=== PATIENT | male | born 1970 | race Caucasian/White ===

== ENCOUNTER 2022-02-10 16:29 | Inpatient (IN) | payer MEDICAID, SELFPAY ==
[2022-02-10] VITALS (21 sets, daily range): BP systolic 129–205; BP diastolic 72–146; PULSE 53–97; RESP 15–27; TEMP 36.6–37.1; O2SAT 94–99; BMI 21.5
--- NOTE | 2022-02-10 | CTR_ITS ---
PROCEDURE INFORMATION: Exam: CT Head Without Contrast Exam date and time: 02/10/2022 5:16 PM Age: 51 years old Clinical indication: Stroke-like symptoms; Altered mental status/memory loss and speech disturbance; Additional info: Stroke like symptoms TECHNIQUE: Imaging protocol: Computed tomography of the head without contrast. Radiation optimization: All CT scans at this facility use at least one of these dose optimization techniques: automated exposure control; mA and/or kV adjustment per patient size (includes targeted exams where dose is matched to clinical indication); or iterative reconstruction. Other technique: STROKE PROTOCOL was implemented. COMPARISON: No relevant prior studies available. RADIATION DOSE METRICS: Total DLP (mGy-cm): 1764.38 FINDINGS: Brain: Mild diffuse white matter disease likely reflecting chronic microvascular ischemic changes. Cerebral ventricles: No ventriculomegaly. Paranasal sinuses: Paranasal sinus opacifications. Mastoid air cells: Visualized mastoid air cells are well aerated. Bones/joints: Unremarkable. No acute fracture. Soft tissues: Unremarkable. CT/CT head wo con* [id number] IMPRESSION: Negative for intracranial hemorrhage or mass effect. ASSESSMENT: ASPECTS ([place] Stroke [facility] Early CT Score) is 10.
--- NOTE | 2022-02-10 16:35 | ED_ITS ---
HPI - Altered Mental Status General: Chief Complaint: Altered Mental Status Stated Complaint: AFFECTIVE DYSPHASIA; AMS Time Seen by Provider: 02/10/22 16:34 Limitations: altered mental status History of Present Illness: Mr. Elias is a 51-year-old gentleman with history of hypertension presenting to the emergency department due to altered mental status. Initially family reported last known well of 11 however upon clarification with additional family last known well was 1500. Patient had sudden onset of word salad and acting confused. No history of similar. No reported recent changes in health otherwise. History otherwise limited by patient's current medical state. Time: 15:00 Timing confirmed by: family member Severity: severe Consistency of symptoms: Constant Review of Systems General: Reports: ROS unobtainable due to mental status PFSH ED PFSH: Medical History HTN (hypertension) Surgical History No pertinent past surgical history Family History Denies family history of Stroke Social History Smoking and tobacco status: current every day smoker Alcohol intake: current Household members: family Physical Exam Const: COMMON NORMALS: alert GENERAL APPEARANCE: well developed HENMT: COMMON NORMALS: normocephalic and atraumatic HEAD & SCALP: normocephalic and atraumatic Eye: COMMON NORMALS: conjunctivae normal CONJUNCTIVA: Yes conjunctivae normal SCLERA: sclerae normal Neck/C-Spine: COMMON NORMALS: supple GENERAL: Yes trachea midline Resp: COMMON NORMALS: clear to auscultation bilaterally EFFORT & INSPECTION: Yes able to speak in complete sentences AUSCULTATION: clear to auscultation bilaterally Cardio: COMMON NORMALS: regular rate and regular rhythm RATE: regular rate RHYTHM: regular rhythm GI: COMMON NORMALS: Soft to palpation PALPATION: Yes Soft to palpation and No Tenderness to palpation present (GI) Extremity: GENERAL: Yes normal exam except as noted and No edema Neuro: COMMON NORMALS: moves all extremities SENSORIUM/ORIENTATION: Yes alert and Yes Orientation impaired OTHER: Initial NIHSS is at least 6 though exam is severely limited by patient's understanding and lack of ability to follow/understand commands. Psych: ATTENTION/CONCENTRATION: Yes attention grossly impaired and Yes concentration grossly impaired Course Vital Signs: Vital signs: Vital Signs Temperature 98.3 F 02/12/22 10:00 Pulse Rate 82 02/12/22 12:36 Respiratory Rate 16 02/12/22 12:36 Blood Pressure 179/113 02/12/22 06:00 Pulse Oximetry 93 02/12/22 12:36 Oxygen Delivery Me thod 02/12/22 11:03 MDM - Altered Mental Status Medical Decision Making 51-year-old gentleman presenting with acute altered mental status. Exam as above. NIHSS at least 6 though probably greater as the patient does not understand enough to follow commands. Glucose normal. The patient was unable to stay still and not redirectable with commands and therefore required medication for anxiolysis for the purpose of obtaining accurate imaging to evaluate for high morbidity/mortality condition. CT head negative for acute intracranial hemorrhage or mass. Upon clarification and more recent time of definitive onset of symptoms patient is a reasonable tPA candidate and after discussion of risks and benefits of tPA administered. Labs notable for leukocytosis which may be reactive, normal hemoglobin. Metabolic panel without acute derangement to explain symptoms. No evidence of urinary tract infection. Toxic ingestions urine drug screen is negative. CTA negative for large vessel occlusion amenable to endovascular retrieval. Upon serial reassessment patient is perhaps minimally improved. During ED care patient additionally received labetalol for blood pressure control. Most likely etiology of patient's symptoms is stroke. The results of ED evaluation were discussed with the patient and family including plan for admission due to requirement for level of care not available if discharged to prevent significant worsening/deterioration. Patient and family agreeable with plan. Discussed with hospitalist service who was agreeable to admit patient. Medical Records I reviewed the patient's medical records. Lab Data I reviewed the patient's lab results. 02/10/22 16:25 02/10/22 16:25 Radiology Impressions Head/Neck CTA 02/10/22 16:49 IMPRESSION: 1. No arterial stenosis, occlusion or aneurysm. 2. Possible acute left maxillary sinusitis. IMPRESSION: 1. No arterial occlusion or dissection. 2. Less than 50% stenosis of the right vertebral artery and bilateral internal carotid artery origins. REFERENCES: NASCET CRITERIA. The degree of stenosis in the cervical segment of the internal carotid artery is based on NASCET criteria. Normal is no stenosis. Mild is less than 50% stenosis. Moderate is 50-69% stenosis. Severe is 70% to 99% stenosis. Total occlusion is no detectable patent lumen. ADDENDUM: 02/10/221930 THIS REPORT CONTAINS FINDINGS THAT MAY BE CRITICAL TO PATIENT CARE. The findings were communicated via written report. Receipt and understanding of the findings was acknowledged by Matthew Hernández at 7:29 PM GUIDE EXCURSION on 02/10/2022. Head CT 02/11/22 18:00 IMPRESSION: 1. No acute intracranial abnormality. 2. Fluid in the left maxillary sinus. Possible acute sinusitis. Laboratory Results WBC 14.8 10^3/uL (4.0-10.0) H 02/10/22 16:25 RBC 4.30 10^6/uL (4.1-5.3) 02/10/22 16:25 Hgb 13.7 g/dL (11.7-16.6) 02/10/22 16:25 Hct 39.3 % (42.0-52.0) L 02/10/22 16:25 MCV 91.4 fl (80-94) 02/10/22 16:25 MCH 31.9 pg (28.0-34.0) 02/10/22 16:25 MCHC 34.9 g/dL (30.0-36.0) 02/10/22 16:25 RDW 13.2 % (12.1-15.1) 02/10/22 16:25 Plt Count 323 10^3/cmm (130-400) 02/10/22 16:25 MPV 9.8 fL (7.4-10.4) 02/10/22 16:25 Neut % (Auto) 74.0 % 02/10/22 16:25 Lymph % (Auto) 15.7 % 02/10/22 16:25 [place] % (Auto) 8.1 % 02/10/22 16:25 Eos % (Auto) 1.0 % 02/10/22 16:25 Baso % (Auto) 0.7 % 02/10/22 16:25 Neut # (Auto) 10.93 10^3/uL (1.8-7.7) H 02/10/22 16:25 Lymph # (Auto) 2.3 10^3/uL (0.8-4.8) 02/10/22 16:25 [place] # (Auto) 1.2 10^3/uL (0.2-0.9) H 02/10/22 16:25 Eos # (Auto) 0.2 10^3/uL (0.0-0.8) 02/10/22 16:25 Baso # (Auto) 0.1 10^3/uL (0.0-0.1) 02/10/22 16:25 Nucleated RBC % (auto) 0 % 02/10/22 16:25 Nucleated RBCs # 0.0 /100WBC 02/10/22 16:25 D-Dimer 0.56 ug/mIFEU (0-0.59) 02/10/22 16:55 Sodium 136 mmol/L (136-145) 02/10/22 16:25 Potassium 3.6 mmol/L (3.5-5.1) 02/10/22 16:25 Chloride 99 mmol/L (98-107) 02/10/22 16:25 Carbon Dioxide 24 mmol/L (22-29) 02/10/22 16:25 Anion Gap 16.6 (5-19) 02/10/22 16:25 BUN 25 mg/dL (6-20) H 02/10/22 16:25 Creatinine 1.2 mg/dL (0.7-1.2) 02/10/22 16:25 GFR Calculation 63.6 mL/min (90-130) L 02/10/22 16:25 Glucose 121 mg/dL (65-115) H 02/10/22 16:25 POC Glucose 158 mg/dL (70-110) H 02/10/22 17:04 Calculated Osmolality 288 mOsm/kg (285-295) 02/10/22 16:25 Calcium 9.6 mg/dL (8.5-10.5) 02/10/22 16:25 Total Bilirubin 0.3 mg/dL (0.15-1.2) 02/10/22 16:25 AST 16 U/L (0-40) 02/10/22 16:25 ALT 13 U/L (0-41) 02/10/22 16:25 Alkaline Phosphatase 76 U/L (40-130) 02/10/22 16:25 Total Protein 7.3 g/dL (6.6-8.7) 02/10/22 16:25 Albumin 4.2 g/dL (3.5-5.2) 02/10/22 16:25 Globulin 3.1 g/dL (1.3-4.6) 02/10/22 16:25 Triglycerides 141 mg/dL (0-150) 02/10/22 16:25 Cholesterol 291 mg/dL (0-200) H 02/10/22 16:25 LDL Cholesterol, Calc 216 mg/dL (50-129) H 02/10/22 16:25 HDL Cholesterol 47 mg/dL (60-100) L 02/10/22 16:25 LDL/HDL Ratio 4.60 RATIO (0.00-3.22) H 02/10/22 16:25 Cholesterol/HDL Ratio 6.19 mg/dL (1.0-5.00) H 02/10/22 16:25 TSH 1.59 uIU/mL (0.27-4.20) 02/10/22 16:25 Urine Color Straw (Yellow) 02/10/22 17:44 Urine Appearance Clear (CLEAR) 02/10/22 17:44 Urine pH 8 (5-7) H 02/10/22 17:44 Ur Specific [place] 1.010 (1.005-1.030) 02/10/22 17:44 Urine Protein Neg (Negative) 02/10/22 17:44 Urine Glucose (UA) Norm (Normal) 02/10/22 17:44 Urine Ketones 1+ (Negative) H 02/10/22 17:44 Urine Blood Neg (Negative) 02/10/22 17:44 Urine Nitrate Negative (Negative) 02/10/22 17:44 Urine Bilirubin Neg (Negative) 02/10/22 17:44 Prot Sulfosalicylic Acd Negative (Negative) 02/10/22 17:44 Urine Urobilinogen Norm mg/dL (Negative) 02/10/22 17:44 Ur Leukocyte Esterase Negative (Negative) 02/10/22 17:44 Salicylates < 0.3 mg/dL (3-10) L 02/10/22 16:25 Urine Opiates Screen Negative ng/mL (Negative) 02/10/22 17:44 Acetaminophen < 5.0 ug/mL (10-30) L 02/10/22 16:25 Ur Barbiturates Screen Negative ng/mL (Negative) 02/10/22 17:44 Ur Phencyclidine Scrn Negative ng/mL (Negative) 02/10/22 17:44 Ur Amphetamines Screen Negative ng/mL (Negative) 02/10/22 17:44 U Benzodiazepines Scrn Negative ng/mL (Negative) 02/10/22 17:44 Urine Cocaine Screen Negative ng/mL (Negative) 02/10/22 17:44 U Marijuana (THC) Screen Negative ng/mL (Negative) 02/10/22 17:44 Ethyl Alcohol < 10 mg/dL (0-10) 02/10/22 16:25 Critical Care Time Critical Care Time: Critical Care Time: Yes Total Critical Care Time: 40 Attestation: Due to a high probability of clinically significant, possibly life threatening deterioration, the patient required my highest level of attention and preparedness to intervene emergently and I personally spent this critical care time directly and personally managing the patient. This critical care time included obtaining a history; examining the patient; pulse oximetry; ordering and review of laboratory and imaging studies; arranging urgent treatment with development of a management plan; evaluation of patient's response to treatment; frequent reassessment; and, discussions with other providers as applicable. It was exclusive of separately billable procedures. Primary system involved is cerebrovascular Discharge Plan Discharge Patient Disposition: Admitted As Inpatient Admit Provider: Migdalia Wilks Clinical Impression: Stroke, Acute alteration in mental status, Received intravenous tissue plasminogen activator (tPA) in emergency department Condition: Stable Discharge Diet: Cardiac Discharge Activity: Increase activity as tolerated and As per PT/OT instructions Coding Level of Care Code ED Corporate Associate Attorney for [employer] Exam Comprehensive NIH stroke score NIHSS Level Of Consciousness - 1a: 0 Level Of Consciousness Questions - 1b: Neither Correct Level Of Consciousness Commands - 1c: Neither Correct Best Gaze - 2: Normal Visual Tyson - 3: No Visual Loss Facial Palsy - 4: Normal Motor Arm Right - 5: No Drift Motor Arm Left - 5: No Drift Motor Leg Right - 6: No Drift Motor Leg Left - 6: No Drift Limb Ataxia - 7: Absent Sensory - 8: Normal Best Language - 9: Severe Aphasia Dysarthia - 10: Normal Extinction And Inattention - 11: 0 Score Total Score: 6
--- NOTE | 2022-02-10 16:49 | CTR_ITS ---
PROCEDURE INFORMATION: Exam: CTA Head With Contrast, Arteriography Exam date and time: 02/10/2022 6:38 PM Age: 51 years old Clinical indication: Cognitive deficit; Altered mental status; Additional info: Stroke like symptoms TECHNIQUE: Imaging protocol: Computed tomographic angiography of the head with contrast. Exam focused on the arteries. 3D rendering (Not supervised by radiologist): MIP and/or 3D reconstructed images were created by the technologist. Radiation optimization: All CT scans at this facility use at least one of these dose optimization techniques: automated exposure control; mA and/or kV adjustment per patient size (includes targeted exams where dose is matched to clinical indication); or iterative reconstruction. Contrast material: OMNIPAQUE 350; Contrast volume: 100 ml; Contrast route: INTRAVENOUS (IV); COMPARISON: CT head wo con* [id number] 02/10/2022 5:16 PM RADIATION DOSE METRICS: Total DLP (mGy-cm): 455.73 FINDINGS: ANTERIOR CIRCULATION: Right internal carotid artery: There is mild atherosclerotic disease in the cavernous portion of the right internal carotid artery without significant stenosis. Right middle cerebral artery: No occlusion or significant stenosis. No aneurysm. Right anterior cerebral artery: No occlusion or significant stenosis. No aneurysm. Left internal carotid artery: There is mild atherosclerotic disease in the cavernous portion of the left internal carotid artery without significant stenosis. Left middle cerebral artery: No occlusion or significant stenosis. No aneurysm. Left anterior cerebral artery: No occlusion or significant stenosis. No aneurysm. POSTERIOR CIRCULATION: Right vertebral artery: No occlusion or significant stenosis. No aneurysm. Left vertebral artery: The left vertebral artery is hypoplastic and does not contribute to the basilar artery but terminates in the posteroinferior cerebellar artery. Basilar artery: No occlusion or significant stenosis. No aneurysm. Right posterior cerebral artery: origin of the right posterior cerebral artery. No occlusion or aneurysm. Left posterior cerebral artery: No occlusion or significant stenosis. No aneurysm. Brain: No definite mass, mass effect, or midline shift. Cerebral ventricles: No ventriculomegaly. Paranasal sinuses: Air-fluid level in the left maxillary sinus. Bones/joints: Unremarkable. No acute fracture. Soft tissues: Unremarkable. PROCEDURE INFORMATION: Exam: CTA Neck With Contrast Exam date and time: 02/10/2022 6:38 PM Age: 51 years old Clinical indication: Cognitive deficit; Altered mental status; Additional info: Stroke like symptoms TECHNIQUE: Imaging protocol: Computed tomographic angiography of the neck with contrast. 3D rendering (Not supervised by radiologist): MIP and/or 3D reconstructed images were created by the technologist. Radiation optimization: All CT scans at this facility use at least one of these dose optimization techniques: automated exposure control; mA and/or kV adjustment per patient size (includes targeted exams where dose is matched to clinical indication); or iterative reconstruction. Contrast material: OMNIPAQUE 350; Contrast volume: 100 ml; Contrast route: INTRAVENOUS (IV); COMPARISON: CT head wo [facility]* [id number] 02/10/2022 5:16 PM RADIATION DOSE METRICS: Total DLP (mGy-cm): 455.73 FINDINGS: Right common carotid artery: No stenosis. No dissection or occlusion. Right internal carotid artery: There is mild atherosclerotic disease at the origin of the right internal carotid artery with less than 50% stenosis. Right external carotid artery: No occlusion or stenosis of the origin. Left common carotid artery: No stenosis. No dissection or occlusion. Left internal carotid artery: There is mild atherosclerotic disease at the origin of the left internal carotid artery with less than 50% stenosis. Left external carotid artery: No occlusion or stenosis of the origin. Right vertebral artery: Mild calcific plaque in the right vertebral artery with less than 50% stenosis. Left vertebral artery: Patent but mildly hypoplastic left vertebral artery. Soft tissues: Soft tissues in the neck and thoracic inlet are unremarkable. Bones/joints: There is mild degenerative disc disease in the cervical spine. Lungs: Lung apices are clear. CT/CT angio headneck* [id number] IMPRESSION: 1. No arterial stenosis, occlusion or aneurysm. 2. Possible acute left maxillary sinusitis. IMPRESSION: 1. No arterial occlusion or dissection. 2. Less than 50% stenosis of the right vertebral artery and bilateral internal carotid artery origins. REFERENCES: NASCET CRITERIA. The degree of stenosis in the cervical segment of the internal carotid artery is based on NASCET criteria. Normal is no stenosis. Mild is less than 50% stenosis. Moderate is 50-69% stenosis. Severe is 70% to 99% stenosis. Total occlusion is no detectable patent lumen.
[2022-02-10 17:02] LABS: Basophils # 0.1 10^3/uL (0.0-0.1); Basophils % 0.7 %; Eosinophils # 0.2 10^3/uL (0.0-0.8); Hematocrit 39.3 % (42.0-52.0); Hemoglobin 13.7 g/dL (11.7-16.6); Lymphocytes # 2.3 10^3/uL (0.8-4.8); Lymphocytes % 15.7 %; Mean Corpuscular HGB Conc 34.9 g/dL (30.0-36.0); Mean Corpuscular Hemoglobin 31.9 pg (28.0-34.0); Mean Corpuscular Volume 91.4 fl (80-94); Mean Platelet Volume 9.8 fL (7.4-10.4); Monocytes # 1.2 10^3/uL (0.2-0.9); Monocytes % 8.1 %; Neutrophils # 10.93 10^3/uL (1.8-7.7); Nucleated Red Blood Cells % 0 %; Platelet Count 323 10^3/cmm (130-400); Red Cell Distribution Width 13.2 % (12.1-15.1); White Blood Count 14.8 10^3/uL (4.0-10.0)
[2022-02-10] MEDS: haloperidol inj 5 mg/mL INJ 1 mL 2 MG IVP ×2 (17:03→18:01)
[2022-02-10] MEDS: midazolam 1 mg/mL INJ 2 mL 2 MG IVP ×2 (17:03→18:01)
--- NOTE | 2022-02-10 17:06 | PC.NURSE ---
pt sister states that pt was sitting in front of her around 1500 when he went from normal to unable to make words, states everything was garbled, was hardly able to stand and didnt know who she was.
[2022-02-10 17:08] LABS: Glucose Point of Care 158 mg/dL (70-110)
[2022-02-10] MEDS: midazolam 1 mg/mL INJ 2 mL 4 MG IVP (17:17)
[2022-02-10 17:28] LABS: Alanine Aminotransferase 13 U/L (0-41); Albumin Level 4.2 g/dL (3.5-5.2); Alkaline Phosphatase 76 U/L (40-130); Anion Gap 16.6 (5-19); Aspartate Amino Transferase 16 U/L (0-40); Blood Urea Nitrogen 25 mg/dL (6-20); Calcium 9.6 mg/dL (8.5-10.5); Carbon Dioxide 24 mmol/L (22-29); Chloride 99 mmol/L (98-107); Globulin 3.1 g/dL (1.3-4.6); Glomerular Filtration Rate 63.6 mL/min (90-130); Glucose 121 mg/dL (65-115); Osmolality Calculated 288 mOsm/kg (285-295); Potassium 3.6 mmol/L (3.5-5.1); Sodium 136 mmol/L (136-145); Thyroid Stimulating Hormone 1.59 uIU/mL (0.27-4.20); Total Bilirubin 0.3 mg/dL (0.15-1.2); Total Protein 7.3 g/dL (6.6-8.7)
[2022-02-10 17:31] LABS: Acetaminophen < 5.0 ug/mL (10-30); Alcohol Level < 10 mg/dL (0-10); Salicylate < 0.3 mg/dL (3-10)
[2022-02-10 17:55] LABS: Add Urine Microscopic? NO; Charge for UA Resulting for Rev
[2022-02-10 17:59] LABS: Bilirubin Urine Neg (Negative); Blood Urine Neg (Negative); Glucose Urine UA Norm (Normal); Ketones Urine 1+ (Negative); Leukocyte Esterase Urine Negative (Negative); Nitrate Urine Negative (Negative); Protein Urine Neg (Negative); Sulfosalicylic Acid Urine Negative (Negative); Urine Appearance Clear (CLEAR); Urine Color Straw (Yellow); Urobilinogen Urine Norm (Negative); pH Urine 8 (5-7)
[2022-02-10] MEDS: labetalol 5 mg/mL SDV 20mL 20 MG IVP ×2 (18:00→18:20)
[2022-02-10 18:06] LABS: Amphetamines Screen Urine Negative (Negative); Barbiturates Screen Urine Negative (Negative); Benzodiazepines Screen Urine Negative (Negative); Cocaine Screen Urine Negative (Negative); Opiate Screen Urine Negative (Negative); PCP Screen Urine Negative (Negative); THC Screen Urine Negative (Negative)
--- NOTE | 2022-02-10 18:09 | PC.NURSE ---
pt arrives to ED around 1640 by ems. ems reports altered mental status. pt family is present on arrival. pt is awake but disoriented on arrival. he is unable to answer questions he is flailing and talking incoherent. unable to do stroke assessment do to noncompliance. pt seen on telehealth by Dr. Norton who recommended to start TPA. Physician talked with family which agreed they would like to start the treatment. consent signed. TPA started 1544.
--- NOTE | 2022-02-10 18:21 | PC.NURSE ---
pt is fighting and trying to get out of bed, pt needing to be taken for CTA, 100mg ketamine ordered administered by Silvia VILLASEÑOR. pt calmed, VSS oxygen level 97 percent.
[2022-02-10] MEDS: iohexol 350 mg/mL 500 mL Btl (per mL) IV (18:50)
[2022-02-10] MEDS: nicardipine 20 MG/200 ML PREMIX 5 MG IV (18:57)
--- NOTE | 2022-02-10 19:54 | PM.HP ---
Providers/Chief Complaint Admitting Physician: Migdalia Wilks MD Chief Complaint: AFFECTIVE DYSPHASIA; AMS History of Present Illness Antonio Elias is a 51 year old male who has been given tPA for altered mental status in the ER. 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 He has only taken 1 or 2 doses so far. No history of seizure, coronary disease. He drinks beer on and off, he drinks 6 beers a day sometimes. No history of drug abuse. Smoker. Father is stating that Mr. 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, today around 11AM after his father helped him with his chores, patient became confused, initially attributed symptoms to weakness and fatigue, patient decided to go home around 3 PM family noticed that he was confused and very frustrated because he was not able to get up and get his job done, he was able to comprehend however not able to articulate which is making him very frustrated He has been given tPA NIH score 10 was given the ER physician CT head unremarkable patient has received multiple antipsychotics, anxiolytics and sedatives because he was aggressive and belligerent and hypertensive At the time of my evaluation patient is calm and cooperative NIH 0, able to communicate and understand my verbal commands Review of Systems Const: Reports: chills; Denies: fever(s) Eyes: Denies: change in vision ENMT: Denies: throat pain Card: Denies: chest pain Resp: Denies: dyspnea GI: Denies: abdominal pain : Denies: flank pain Musc: Reports: back pain Skin/Breast: Denies: rash Neuro: Reports: headache(s) Psych: Reports: anxiety Endo: Denies: polyuria Siva/Lymph: Denies: easy bruising All/Imm: Denies: urticaria Medications/Allergies Home Medications Medication Instructions Recorded Confirmed Last Taken Type lisinopril 10 mg tablet 10 mg PO DAILY htn 02/10/22 02/10/22 02/10/22 History Allergies Allergy/AdvReac Type Severity Reaction Status Date / Time No Known Allergies Allergy Verified 02/10/22 17:01 PFSH Acute PFSH: Medical History (Updated 02/10/22 @ 19:36 by Matthew Hernández MD) HTN (hypertension) Surgical History (Updated 02/10/22 @ 20:43 by Migdalia Wilks MD) No pertinent past surgical history Family History (Updated 02/10/22 @ 20:43 by Migdalia Wilks MD) Denies family history of Stroke Social History (Updated 02/10/22 @ 20:43 by Migdalia Wilks MD) Smoking and tobacco status: current every day smoker Alcohol intake: current Substance/Drug Use: never Household members: family Vitals/I&O/Wt Last Vital Signs Pulse 72 02/10/22 19:11 Resp 17 02/10/22 19:11 BP 197/133 02/10/22 19:11 Pulse Ox 97 02/10/22 19:11 O2 Del Method 02/10/22 19:11 02/10/22 02/10/22 02/10/22 06:59 14:59 22:59 Intake Total 102.667 / 102.667 Balance 102.667 / 102.667 Weight last 48 hrs Weight 65.771 kg Physical Exam Narrative: NIH 0 Creased restraints requested to be removed Patient is awake and alert Able to comprehend medical concerns and questions Pupils are reactive Able to move all of his extremities He is not agitated or aggressive S1, S2 Hemodynamically stable Doing well on room air Multiple skin tattoos Dry mucous membranes Skin is dry No signs of edema Data 02/10/22 16:25 02/10/22 16:25 A&P Assessment and plan (1) Acute alteration in mental status: (2) Received intravenous tissue plasminogen activator (tPA) in emergency department: (3) HTN (hypertension): Plan Altered mental status/confusion Word salad NIH 0 at the time of my evaluation Status post tPA It could be complex migraine related presentation CT head unremarkable Drug screen unremarkable TSH unremarkable Patient is hypertensive, after tPA his blood pressure was high he received multiple doses of labetalol I will go ahead and continue him on lisinopril, at the time of discharge she should get chlorthalidone, amlodipine along lisinopril PT/OT/ST Full code DVT prophylaxis contraindicated for next 24 hours Will request stroke work-up Attestations Medical Necessity Statement*: Anticipating stay in the hospital more than 2 midnights status post tPA Time Spent in Patient Care: 40 Coding Level of Care Code Acute Manager Strategic Sourcing for [employer] Fwd Diagnoses Acute alteration in mental status R41.82 Received intravenous tissue plasminogen activator (tPA) in emergency department Z92.82 HTN (hypertension) I10
[2022-02-10 20:16] LABS: D Dimer 0.56 ug/mIFEU (0-0.59)
[2022-02-10 22:42] LABS: Estmated Average Glucose 111; Hemoglobin A1C 5.5 % (4.0-6.0)
--- NOTE | 2022-02-10 23:45 | PC.NURSE ---
2049- pt recieved from ed via stretcher, oriented to self only, follows some commands, is lethargic, restraints are not on upon arrival and left off at this time as patient is cooperative. will monitor.
[2022-02-11] VITALS (69 sets, daily range): BP systolic 109–181; BP diastolic 64–106; PULSE 55–98; RESP 0–25; TEMP 36.6–37.1; O2SAT 92–99
[2022-02-11 01:49] LABS: Vitamin B12 551 pg/mL (232-1245)
--- NOTE | 2022-02-11 06:00 | USCV_ITS ---
Antonio Elias Age: 51 Gender: M : 1970 Exam Date: 02/11/2022 09:14 Ordering Phys: Migdalia Wilks MD Technologist: JOSE Exam Location: [facility] [place] Indication: cva BP: 153 / 91 HR: 51 Rhythm: Sinus Technical Quality: Adequate MEASUREMENTS (Male / Female) Normal Values 2D ECHO LV Diastolic Diameter PLAX 5.0 cm 4.2 - 5.9 / 3.9 - 5.3 cm LV Systolic Diameter PLAX 3.4 cm IVS Diastolic Thickness 1.0 cm 0.6 - 1.0 / 0.6 - 0.9 cm IVS Systolic Thickness 1.5 cm LVPW Diastolic Thickness 1.2 cm 0.6 - 1.0 / 0.6 - 0.9 cm LVPW Systolic Thickness 1.6 cm LVOT Diameter 2.0 cm LV Ejection Fraction 2D Teich 59.9 % LA Diameter 3.3 cm IVC Diameter 1.1 cm M-MODE Aortic Annulus Diameter 3.1 cm LA Ao Ratio MM 1.2 MV E Point Septal Separation 0.9 cm DOPPLER AV Peak Velocity 177.0 cm/s LVOT Peak Velocity 106.0 cm/s AV Area Cont Eq vti 1.8 cm squared AV Area Cont Eq pk 2.0 cm squared MV Area PHT 3.9 cm squared Mitral E to A Ratio 1.4 MV E' Velocity 52.5 cm/s Mitral E to MV E' Ratio 15.0 Mitral E to LV E' Lateral Ratio 15.2 Mitral E to LV E' Septal Ratio 15.0 TR Peak Velocity 179.0 cm/s TR Peak Gradient 12.8 mmHg TV Peak E Velocity 57.0 cm/s PV Peak Velocity 74.0 cm/s FINDINGS Left Ventricle Left ventricle is normal in size. LV systolic function is normal with EF of 55 to 60%. No regional wall motion abnormalities are seen Right Ventricle Normal in size and function Right Atrium Normal in size. Bubble study is indeterminate because of poor visualization. Left Atrium Normal in size Mitral Valve Structurally normal mitral valve. Mild mitral regurgitation Aortic Valve Structurally normal aortic valve. No significant stenosis. Mild aortic regurgitation Tricuspid Valve Mild tricuspid regurgitation. Insufficient TR jet to calculate RVSP Pulmonic Valve Not well-visualized Pericardium Normal Aorta Normal in size IVC Appears to be normal CONCLUSIONS LV systolic function is normal with EF of 55-60% Mild mitral regurgitation. Mild aortic regurgitation. Mild tricuspid regurgitation No comparison studies are available Shahzad Younger MD (Electronically Signed) Final Date: 11 February 2022 11:16 S
--- NOTE | 2022-02-11 07:08 | PC.NURSE ---
bedside report bedside report received from Sridevi VILLASEÑOR
[2022-02-11 09:13] LABS: Glucose Point of Care 114 mg/dL (70-110)
--- NOTE | 2022-02-11 09:13 | PC.OT ---
Orders received. Will hold eval until tomorrow as patient was given TPA.
--- NOTE | 2022-02-11 09:34 | PC.NURSE ---
Ultrasound at bedside for test. Speech Therapy on unit for assessment after testing complete
[2022-02-11] MEDS: atorvastatin 40 mg Tablet 80 MG PO (10:58)
[2022-02-11] MEDS: amlodipine 5 mg Tablet PO (12:49)
[2022-02-11 14:31] LABS: Chol HDL Ratio 6.19 mg/dL (1.0-5.00); Cholesterol 291 mg/dL (0-200); HDL Cholesterol 47 mg/dL (60-100); LDL Cholesterol Calculated 216 mg/dL (50-129); Triglycerides 141 mg/dL (0-150)
--- NOTE | 2022-02-11 15:46 | P.PN_ITS ---
Subjective Subjective: This morning he feels better. Denies any residual difficulties with his speech. States that he feels much better, ready to go home. Discussed with him assessment yesterday with suspected CVA, having received tPA requiring additional monitoring with risk of bleeding, reassessment with CT head. He has also had elevated blood pressures and required multiple IV antihypertensives yesterday. He otherwise subjectively is feeling much better. Denies any symptoms. Vitals/I&O/Wt Last Vital Signs Temp 98.0 F 02/11/22 12:00 Pulse 65 02/11/22 15:23 Resp 24 H 02/11/22 14:00 BP 129/74 02/11/22 14:00 Pulse Ox 98 02/11/22 14:00 O2 Del Method 02/11/22 14:00 02/11/22 02/11/22 02/11/22 06:59 14:59 22:59 Intake Total 200 / 311.417 240 / 240 Output Total 650 / 650 275 / 275 Balance -450 / -338.583 -35 / -35 Weight last 48 hrs Weight 60.5 kg Weight 65.771 kg Physical Exam Const: COMMON NORMALS: patient oriented x3 and alert GENERAL APPEARANCE: cooperative ORIENTATION/CONSCIOUSNESS: Yes awake HENMT: COMMON NORMALS: oropharynx normal Neck/C-Spine: COMMON NORMALS: no JVD Resp: COMMON NORMALS: normal respiratory effort and clear to auscultation bilaterally AUSCULTATION: clear to auscultation bilaterally Cardio: COMMON NORMALS: no JVD, regular rhythm, S1 normal heart sound present, S2 normal heart sound present and No murmurs present (Cardio) RHYTHM: regular rhythm HEART SOUNDS: S1 normal heart sound present and S2 normal heart sound present GI: COMMON NORMALS: Normal to inspection, nondistended, normoactive bowel so unds present, Soft to palpation and non-tender PALPATION: Yes Soft to pal pation Extremity: COMMON NORMALS: no joint enlargement and no pedal edema Neuro: COMMON NORMALS: patient oriented x3 and moves all extremities SENSORIUM/ORIENTATION: Yes alert Skin: COMMON NORMALS: no rashes or lesions noted GENERAL SKIN EXAM: no rashes or lesions noted Data 02/10/22 16:25 02/10/22 16:25 A&P Assessment and plan (1) Acute alteration in mental status: He is awake and alert. Conversant. Cooperative. Aphasia appears to have resolved. Altered mental status if any has resolved. Noted results of head CT, CTA. Less than 50% stenosis of right vertebral artery and bilateral internal carotid artery origins. Possible acute left maxillary sinusitis. Pending assessment with PT, OT, ST. UA not suggestive of UTI. UDS unremarkable. B12 WNL. TSH normal. (2) Received intravenous tissue plasminogen activator (tPA) in emergency department: No signs of bleeding. Symptoms of possible CVA, aphasia have resolved. Follow- up CT head tonight. Echocardiogram with bubble study showed normal ejection fraction, mild MVR, mild AVR, mild TVR. Suspected CVA. Will benefit from quitting smoking. Optimization of hypertension. Continue antiplatelet, statin. Discussed with him follow-up with MRI. Follow-up with neurology. Requesting baseline lipid profile. A1c 5.5. (3) HTN (hypertension): Declined lisinopril. Switch to amlodipine 5 mg started scheduled at this time due to requiring multiple IV doses of antihypertensives overnight. This morning blood pressure 181/95. Doing better later in the afternoon. Attestations Medical Necessity Statement*: Continue admission for cyst management following suspected CVA, status post tPA. Coding Level of Care Code Acute Flight Radio Operator for Emileg Luiz Diagnoses Acute alteration in mental status R41.82 Received intravenous tissue plasminogen activator (tPA) in emergency department Z92.82 HTN (hypertension) I10
--- NOTE | 2022-02-11 18:00 | CTR_ITS ---
PROCEDURE INFORMATION: Exam: CT Head Without Contrast Exam date and time: 02/11/2022 5:56 PM Age: 51 years old Clinical indication: Altered mental status/memory loss; Additional info: Post tpa 02/10 1734 TECHNIQUE: Imaging protocol: Computed tomography of the head without contrast. Radiation optimization: All CT scans at this facility use at least one of these dose optimization techniques: automated exposure control; mA and/or kV adjustment per patient size (includes targeted exams where dose is matched to clinical indication); or iterative reconstruction. COMPARISON: CT head wo con* [id number] 02/10/2022 5:16 PM RADIATION DOSE METRICS: Total DLP (mGy-cm): 1149.34 FINDINGS: Brain: There is minimal hypoattenuation in the periventricular white matter suggesting chronic microvascular disease. There is no significant mass effect or midline shift. There is no acute intracranial hemorrhage. Cerebral ventricles: There is no significant ventricular dilation. The basal cisterns are unremarkable. Paranasal sinuses: There is fluid in the left maxillary sinus. Mastoid air cells: The mastoid air cells are clear. Bones/joints: The calvarium is intact. Soft tissues: The visible extracranial soft tissues are unremarkable. CT/CT head wo con* [id number] IMPRESSION: 1. No acute intracranial abnormality. 2. Fluid in the left maxillary sinus. Possible acute sinusitis.
--- NOTE | 2022-02-11 22:55 | PC.NURSE ---
Bedside report received from Diana Klein RN.
[2022-02-12] VITALS (81 sets, daily range): BP systolic 160–202; BP diastolic 83–113; PULSE 50–83; RESP 4–23; TEMP 36.8; O2SAT 93–97
[2022-02-12 03:02] LABS: Basophils # 0.1 10^3/uL (0.0-0.1); Basophils % 0.8 %; Eosinophils # 0.2 10^3/uL (0.0-0.8); Hematocrit 40.6 % (42.0-52.0); Hemoglobin 13.9 g/dL (11.7-16.6); Lymphocytes # 2.1 10^3/uL (0.8-4.8); Lymphocytes % 18.5 %; Mean Corpuscular HGB Conc 34.2 g/dL (30.0-36.0); Mean Corpuscular Hemoglobin 31.7 pg (28.0-34.0); Mean Corpuscular Volume 92.7 fl (80-94); Mean Platelet Volume 9.9 fL (7.4-10.4); Monocytes # 1.3 10^3/uL (0.2-0.9); Monocytes % 11.4 %; Neutrophils # 7.55 10^3/uL (1.8-7.7); Neutrophils % 66.9 %; Nucleated Red Blood Cells % 0 %; Platelet Count 309 10^3/cmm (130-400); Red Blood Count 4.38 10^6/uL (4.1-5.3); Red Cell Distribution Width 13.2 % (12.1-15.1); White Blood Count 11.3 10^3/uL (4.0-10.0)
[2022-02-12 03:25] LABS: Anion Gap 13.9 (5-19); Blood Urea Nitrogen 18 mg/dL (6-20); Calcium 9.5 mg/dL (8.5-10.5); Carbon Dioxide 26 mmol/L (22-29); Chloride 99 mmol/L (98-107); Glomerular Filtration Rate 78.5 mL/min (90-130); Glucose 88 mg/dL (65-115); Osmolality Calculated 281 mOsm/kg (285-295); Potassium 3.9 mmol/L (3.5-5.1); Sodium 135 mmol/L (136-145)
--- NOTE | 2022-02-12 06:21 | PC.NURSE ---
Patient had an uneventful night. BP did remain elevated as it was the previous afternoon. Systolic ran between 160-170s through shift. Patient was AOx4 through this nurses shift.
[2022-02-12] MEDS: aspirin 81 mg EC Tablet PO (09:34)
[2022-02-12] MEDS: atorvastatin 40 mg Tablet 80 MG PO (09:34)
[2022-02-12] MEDS: amlodipine 5 mg Tablet PO (09:34)
--- NOTE | 2022-02-12 12:36 | PC.NURSE ---
Pt d/c Pt given d/c instructions. Pt's family was at bedside to hear education. IVs removed. All of pt's questions were answered. Pt walked to front door by this nurse with family present.
--- NOTE | 2022-02-12 22:00 | PM.DCS ---
Discharge Providers Date of Admission: 02/10/22 19:36 Date of Discharge: February 12, 2022 Attending Provider at Admission: Migdalia Wilks MD Attending Provider at Discharge: Channing Johnson Diagnoses at Discharge Discharge Diagnosis (1) Acute alteration in mental status: Status: Acute (2) Received intravenous tissue plasminogen activator (tPA) in emergency department: Status: Acute (3) HTN (hypertension): Status: Acute Reason for Visit Reason for Visit: AFFECTIVE DYSPHASIA; AMS Hospital Course Hospital Course 51-year-old gentleman was admitted for assessment management after presenting with aphasia, hypertensive, has also noted a headache for several weeks. Earlier in the day he became confused, at home noted frustrated because he could not get up and perform desired activities, and was able to understand but could not articulate what he wanted to say. On presentation with unremarkable CT head, NIH of 10, received tPA. Received also antipsychotic, anxiolytic and sedative. Required IV antihypertensives. With sinus rhythm on the monitor. CT angiogram head and neck with less than 50% stenosis of right vertebral artery and bilateral internal carotid artery origins. Possible left maxillary sinusitis. Repeat CT at 24 hours with similar findings, fluid in maxillary sinus, no acute intracranial abnormality. Echocardiogram with bubble study showed normal ejection fraction, mild MVR, mild AVR, mild TVR. He did well with ST, PT, OT. His neurologic symptoms resolved, on reassessment he had no residual aphasia, or other neurologic symptoms. He reported he felt much better. His blood pressure noted elevated for which he did require labetalol. He has had lisinopril prescribed, but declines to take it. He is started on amlodipine instead, is instructed to monitor blood pressures closely. He started on aspirin and statin. He is given a referral for outpatient MRI and follow-up with neurology. He was counseled on smoking cessation, optimization of blood pressure control and other risk factors. Please reassess his condition. Continue optimization of risk factors. Physical Exam Const: COMMON NORMALS: patient oriented x3 and alert GENERAL APPEARANCE: cooperative ORIENTATION/CONSCIOUSNESS: Yes awake HENMT: COMMON NORMALS: oropharynx normal Neck/C-Spine: COMMON NORMALS: no JVD Resp: COMMON NORMALS: normal respiratory effort and clear to auscultation bilaterally AUSCULTATION: clear to auscultation bilaterally Cardio: COMMON NORMALS: no JVD, regular rhythm, S1 normal heart sound present, S2 normal heart sound present and No murmurs present (Cardio) RHYTHM: regular rhythm HEART SOUNDS: S1 normal heart sound present and S2 normal heart sound present GI: COMMON NORMALS: Normal to inspection, nondistended, normoactive bowel sounds present, Soft to palpation and non-tender PALPATION: Yes Soft to palpation Extremity: COMMON NORMALS: no joint enlargement and no pedal edema Neuro: COMMON NORMALS: patient oriented x3 and moves all extremities SENSORIUM/ORIENTATION: Yes alert Skin: COMMON NORMALS: no rashes or lesions noted GENERAL SKIN EXAM: no rashes or lesions noted Discharge Data Studies Completed and Pending Completed Studies During Hospitalization Category Date Time Status CT head wo con* [id number] Routine Cat Scan 02/11/22 18:[address] head wo con* [id number] Stat Cat Scan 02/10/22 Completed CTA head neck [CT angio headneck* [id number]] Stat Cat Scan 02/10/22 16:49 Completed CV. echo w/w bubble cont [id number] Routine Ultrasound 02/11/22 06:00 Completed Pending at discharge Category Date Time Status JACK Screen w/ Reflex Routine Lab 02/10/22 22:12 Received PROTEIN C, ACTIVITY Routine Lab 02/10/22 22:12 Received PROTEIN S, ACTIVITY Routine Lab 02/10/22 22:12 Received Radiology Impressions Head/Neck CTA 02/10/22 16:49 IMPRESSION: 1. No arterial stenosis, occlusion or aneurysm. 2. Possible acute left maxillary sinusitis. IMPRESSION: 1. No arterial occlusion or dissection. 2. Less than 50% stenosis of the right vertebral artery and bilateral internal carotid artery origins. REFERENCES: NASCET CRITERIA. The degree of stenosis in the cervical segment of the internal carotid artery is based on NASCET criteria. Normal is no stenosis. Mild is less than 50% stenosis. Moderate is 50-69% stenosis. Severe is 70% to 99% stenosis. Total occlusion is no detectable patent lumen. ADDENDUM: 02/10/221930 THIS REPORT CONTAINS FINDINGS THAT MAY BE CRITICAL TO PATIENT CARE. The findings were communicated via written report. Receipt and understanding of the findings was acknowledged by Matthew Hernández at 7:29 PM SOLAR LAB TECHNICIAN on 02/10/2022. Head CT 02/11/22 18:00 IMPRESSION: 1. No acute intracranial abnormality. 2. Fluid in the left maxillary sinus. Possible acute sinusitis. Laboratory Results WBC 11.3 10^3/uL (4.0-10.0) H 02/12/22 02:47 RBC 4.38 10^6/uL (4.1-5.3) 02/12/22 02:47 Hgb 13.9 g/dL (11.7-16.6) 02/12/22 02:47 Hct 40.6 % (42.0-52.0) L 02/12/22 02:47 MCV 92.7 fl (80-94) 02/12/22 02:47 MCH 31.7 pg (28.0-34.0) 02/12/22 02:47 MCHC 34.2 g/dL (30.0-36.0) 02/12/22 02:47 RDW 13.2 % (12.1-15.1) 02/12/22 02:47 Plt Count 309 10^3/cmm (130-400) 02/12/22 02:47 MPV 9.9 fL (7.4-10.4) 02/12/22 02:47 Neut % (Auto) 66.9 % 02/12/22 02:47 Lymph % (Auto) 18.5 % 02/12/22 02:47 [place] % (Auto) 11.4 % 02/12/22 02:47 Eos % (Auto) 2.0 % 02/12/22 02:47 Baso % (Auto) 0.8 % 02/12/22 02:47 Neut # (Auto) 7.55 10^3/uL (1.8-7.7) 02/12/22 02:47 Lymph # (Auto) 2.1 10^3/uL (0.8-4.8) 02/12/22 02:47 [place] # (Auto) 1.3 10^3/uL (0.2-0.9) H 02/12/22 02:47 Eos # (Auto) 0.2 10^3/uL (0.0-0.8) 02/12/22 02:47 Baso # (Auto) 0.1 10^3/uL (0.0-0.1) 02/12/22 02:47 Nucleated RBC % (auto) 0 % 02/12/22 02:47 Nucleated RBCs # 0.0 /100WBC 02/12/22 02:47 D-Dimer 0.56 ug/mIFEU (0-0.59) 02/10/22 16:55 Sodium 135 mmol/L (136-145) L 02/12/22 02:47 Potassium 3.9 mmol/L (3.5-5.1) 02/12/22 02:47 Chloride 99 mmol/L (98-107) 02/12/22 02:47 Carbon Dioxide 26 mmol/L (22-29) 02/12/22 02:47 Anion Gap 13.9 (5-19) 02/12/22 02:47 BUN 18 mg/dL (6-20) 02/12/22 02:47 Creatinine 1.0 mg/dL (0.7-1.2) 02/12/22 02:47 GFR Calculation 78.5 mL/min (90-130) L 02/12/22 02:47 Glucose 88 mg/dL (65-115) 02/12/22 02:47 POC Glucose 114 mg/dL (70-110) H 02/11/22 09:09 Estimat Average Glucose 111 02/10/22 22:12 Hemoglobin A1c 5.5 % (4.0-6.0) 02/10/22 22:12 Calculated Osmolality 281 mOsm/kg (285-295) L 02/12/22 02:47 Calcium 9.5 mg/dL (8.5-10.5) 02/12/22 02:47 Total Bilirubin 0.3 mg/dL (0.15-1.2) 02/10/22 16:25 AST 16 U/L (0-40) 02/10/22 16:25 ALT 13 U/L (0-41) 02/10/22 16:25 Alkaline Phosphatase 76 U/L (40-130) 02/10/22 16:25 Total Protein 7.3 g/dL (6.6-8.7) 02/10/22 16:25 Albumin 4.2 g/dL (3.5-5.2) 02/10/22 16:25 Globulin 3.1 g/dL (1.3-4.6) 02/10/22 16:25 Triglycerides 141 mg/dL (0-150) 02/10/22 16:25 Cholesterol 291 mg/dL (0-200) H 02/10/22 16:25 LDL Cholesterol, Calc 216 mg/dL (50-129) H 02/10/22 16:25 HDL Cholesterol 47 mg/dL (60-100) L 02/10/22 16:25 LDL/HDL Ratio 4.60 RATIO (0.00-3.22) H 02/10/22 16:25 Cholesterol/HDL Ratio 6.19 mg/dL (1.0-5.00) H 02/10/22 16:25 Vitamin B12 551 pg/mL (232-1245) 02/10/22 22:12 TSH 1.59 uIU/mL (0.27-4.20) 02/10/22 16:25 Urine Color Straw (Yellow) 02/10/22 17:44 Urine Appearance Clear (CLEAR) 02/10/22 17:44 Urine pH 8 (5-7) H 02/10/22 17:44 Ur Specific [place] 1.010 (1.005-1.030) 02/10/22 17:44 Urine Protein Neg (Negative) 02/10/22 17:44 Urine Glucose (UA) Norm (Normal) 02/10/22 17:44 Urine Ketones 1+ (Negative) H 02/10/22 17:44 Urine Blood Neg (Negative) 02/10/22 17:44 Urine Nitrate Negative (Negative) 02/10/22 17:44 Urine Bilirubin Neg (Negative) 02/10/22 17:44 Prot Sulfosalicylic Acd Negative (Negative) 02/10/22 17:44 Urine Urobilinogen Norm mg/dL (Negative) 02/10/22 17:44 Ur Leukocyte Esterase Negative (Negative) 02/10/22 17:44 Salicylates < 0.3 mg/dL (3-10) L 02/10/22 16:25 Urine Opiates Screen Negative ng/mL (Negative) 02/10/22 17:44 Acetaminophen < 5.0 ug/mL (10-30) L 02/10/22 16:25 Ur Barbiturates Screen Negative ng/mL (Negative) 02/10/22 17:44 Ur Phencyclidine Scrn Negative ng/mL (Negative) 02/10/22 17:44 Ur Amphetamines Screen Negative ng/mL (Negative) 02/10/22 17:44 U Benzodiazepines Scrn Negative ng/mL (Negative) 02/10/22 17:44 Urine Cocaine Screen Negative ng/mL (Negative) 02/10/22 17:44 U Marijuana (THC) Screen Negative ng/mL (Negative) 02/10/22 17:44 Ethyl Alcohol < 10 mg/dL (0-10) 02/10/22 16:25 Vitals Last Vital Signs Temp 98.3 F 02/12/22 10:00 Pulse 82 02/12/22 12:36 Resp 16 02/12/22 12:36 BP 179/113 02/12/22 06:00 Pulse Ox 93 02/12/22 12:36 O2 Del Method 02/12/22 11:03 Discharge Plan Discharge Patient Disposition: Home Condition: Stable Prescriptions: New atorvastatin 40 mg Tablet 40 mg PO DAILY Qty: 90 0RF amlodipine 5 mg Tablet 5 mg PO DAILY Qty: 90 0RF aspirin 81 mg Tablet,Delayed Release (Dr/Ec) 81 mg PO DAILY Qty: 90 0RF Discontinued lisinopril 10 mg Tablet 10 mg PO DAILY Discharge Orders: Discharge Order (Routine); Ordered 02/12/22 Ordered By: Channing Johnson Other Ambulatory Orders: MR head wo con* [id number] (Routine) Timeframe: 3 Days Facility: [facility] - Location: Rad[facility] Ordered By: Channing Johnson Referrals: NEUROSCIENCE PROVIDERS [Provider Group] - 02/14/22 10:00 am (Dr Norton's office ) Danica Hamilton FNP [Referring] - 02/16/22 1:00 pm Discharge Diet: Cardiac Discharge Activity: Increase activity as tolerated and As per PT/OT instructions Patient Instructions: Aspirin (By mouth), Atorvastatin (By mouth), How to Stop Smoking (GEN), Cigarette Smoking and Your Health (GEN), Ischemic Stroke (GEN), Chronic Hypertension (GEN), Opioid Safety Activity Restrictions/Additional Instructions: Please stop smoking, continued smoking will lead to continued increased risk of stroke, heart attack, as well as risk of lung disease, cancer, and other serious comorbidities. Measure blood pressures 3 times daily, write down values to bring to your appointment. Follow-up with outpatient MRI for closer assessment with concern for stroke versus TIA. Follow-up with your primary provider and with neurology for additional assessment. Discharge Attestations Time Spent in Discharge Care*: greater than 30 min Quality Metrics Clinical Quality Measures [ Cerebrovascular Accident { Contraindication to Antithrombotic: None; antithrombotic prescribed; Contraindication to Anticoagulation: Overlap treatment not indicated; Contraindication to Statin: None; Statin prescribed;}] Coding Level of Care Code Acute Chg FW DC note Diagnoses Acute alteration in mental status R41.82 Received intravenous tissue plasminogen activator (tPA) in emergency department Z92.82 HTN (hypertension) I10
[2022-02-14 12:58] LABS: Anti-Nuclear Antibody Pattern Nuclear, Speckled; Anti-Nuclear Antibody Screen POSITIVE (NEGATIVE); Anti-Nuclear Antibody Titer 1:40 titer
[2022-02-16 18:50] LABS: PROTEIN S, ACTIVITY <10 % normal (70-150)
== END 2022-02-12 12:42 | disposition home or self-care (01) | DRG 63 ==
LOC: ER 19:36 → ICU 19:52
PROVIDERS: Admitting Provider Internal Medicine; Emergency Provider Emergency Medicine; Visit Provider Internal Medicine
DX: I63.9 Cerebral infarction, unspecified (principal); R47.01 Aphasia; R29.710 NIHSS score 10; I10 Essential (primary) hypertension; J01.00 Acute maxillary sinusitis, unspecified; F10.90 Alcohol use, unspecified, uncomplicated; F17.210 Nicotine dependence, cigarettes, uncomplicated
CPT/HCPCS: 36415; 36416; 70450; 70496; 70498; 80048; 80053; 80061; 80306; 80307; 81003; 82607; 82962; 83036; 84443; 85025; 85303; 85306; 85378; 86038; 92523; 96365; 96375; 96376; 97161; 99285; C8929; J1630; J2250; J2997; J3490; Q9967

== ENCOUNTER → 2022-02-14 09:49 | Outpatient (BNVA) | payer MEDICAID, SELFPAY | PROVIDERS: Visit Provider Specialist | DX: I65.23 Occlusion and stenosis of bilateral carotid arteries (principal); I67.2 Cerebral atherosclerosis; Z86.73 Personal history of transient ischemic attack (TIA), and cerebral infarction without residual deficits; F17.210 Nicotine dependence, cigarettes, uncomplicated; I10 Essential (primary) hypertension | CPT/HCPCS: 99205 ==

== ENCOUNTER 2022-02-15 09:10 | Outpatient (CLI) | payer MEDICAID, SELFPAY ==
--- NOTE | 2022-02-15 10:00 | MR_ITS ---
WS: [id number] MRI HEAD WITHOUT CONTRAST TECHNIQUE: Sagittal T1, T2 axial, T2 axial FLAIR, axial and coronal T1 images, axial susceptibility w eighted imaging, axial diffusion weighted images, and coronal T2 images were obtained. CLINICAL INFORMATION: Poss CVA vs TIA COMPARISON: CT February 11, 2022 FINDINGS: Small 5 mm focus of restricted diffusion in the LEFT parasagittal frontal lobe consistent with acute ischemia. No other foci of restricted diffusion. No mass effect or midline shift. Moderate small vessel changes. Mild parenchymal volume loss. Small vessel changes in the yusef. Normal posterior fossa. Normal vascular flow voids at the skull base. No extra-axial fluid collections. No evidence of mass or mass effect. Mild mucosal thickening paranasal sinuses. Fluid within the LEFT max illary sinus. Mastoid air cells are well aerated. No hemosiderin on susceptibly weighted images. Normal optic chias m and pituitary infundibulum. Mild to moderate symmetric atrophy temporal lobes and hippocampal forma tions. Normal cavernous sinuses and Meckel's cave. MR/MR head wo con* [id number] IMPRESSION: 1. Small 5 mm focus of restricted diffusion LEFT parasagittal frontal lobe con sistent with acute ischemia. 2. No significant mass effect or midline shift. 3. Moderate small vessel changes with mild parenchymal volume loss. Small vess el changes in the yusef. 4. LEFT maxillary sinusitis. 5. No other acute findings. Notified Channing Johnson MD at 02/15/2022 11:16 AM.
== END 2022-02-15 09:11 | disposition home or self-care (01) ==
LOC: RAD 09:10
PROVIDERS: Visit Provider Internal Medicine
DX: I63.9 Cerebral infarction, unspecified (principal)
CPT/HCPCS: 70551

== ENCOUNTER → 2024-03-09 10:32 | Outpatient (BNVA) | payer MEDICAID, SELFPAY | PROVIDERS: PCP Nurse Practitioner Family; Visit Provider Podiatrist Foot & Ankle Surgery | DX: M25.571 Pain in right ankle and joints of right foot (principal); M19.171 Post-traumatic osteoarthritis, right ankle and foot; T84.84XA Pain due to internal orthopedic prosthetic devices, implants and grafts, initial encounter; Y79.2 Prosthetic and other implants, materials and accessory orthopedic devices associated with adverse incidents | CPT/HCPCS: 73610 ==